=== PATIENT | female | born 2005 | race Caucasian/White ===

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

== ENCOUNTER → 2024-09-13 | Outpatient (CLI) | payer BC | LOC: CSHULT 08:16 | PROVIDERS: ATTEND Specialist | DX: R11.2 Nausea with vomiting, unspecified (principal); K76.0 Fatty (change of) liver, not elsewhere classified | CPT/HCPCS: 76700; 76857 ==